=== PATIENT | female | born 1980 | race Caucasian/White ===

== ENCOUNTER 2016-07-02 22:48 | Emergency (ER) | payer OTHER ==
[~2016-07-02 22:48] MED LIST: AUGMENTIN TAB875 MG PO; FOLIC ACID 1 MG1 MG PO; GLUCOPHAGE 500500 MG PO; LISINOPRIL40 MG PO; LORTAB 7.5-3251 EACH PO; METFORMIN HCL500 MG PO; NEURONTIN 400400 MG PO; NORCO 7.5-3251 EACH PO; SEROQUEL100 MG PO
== END 2016-07-03 01:55 | disposition home or self-care (01) ==
LOC: ER1 22:48
DX: M54.5 Low back pain (principal); M79.604 Pain in right leg; G89.29 Other chronic pain; E11.9 Type 2 diabetes mellitus without complications; F17.200 Nicotine dependence, unspecified, uncomplicated; Z79.84 Long term (current) use of oral hypoglycemic drugs; Z79.899 Other long term (current) drug therapy
CPT/HCPCS: 96372; 99283; J1100

== ENCOUNTER 2021-09-07 23:57 | Emergency (ER) | payer OTHER ==
[~2021-09-07 23:57] MED LIST changes: +BROMFED DM COU473 ML PO; +PROAIR HFA8.5 GM INH
[2021-09-08 00:40] LABS: HEMOGLOBIN 11.4 gm/dl (12.3-15.3); WHITE BLOOD COUNT 5.2 K/UL (4.5-11.0)
[2021-09-08 01:01] LABS: BUN/CREATININE RATIO 14 (0-10)
== END 2021-09-08 00:01 | disposition home or self-care (01) ==
LOC: ER1 23:57
PROVIDERS: Emergency Medicine
DX: M54.2 Cervicalgia (principal); M25.512 Pain in left shoulder; I10 Essential (primary) hypertension; E11.9 Type 2 diabetes mellitus without complications; F17.210 Nicotine dependence, cigarettes, uncomplicated
CPT/HCPCS: 71045; 80053; 82550; 82553; 84484; 85025; 85379; 93005; 99284

== ENCOUNTER 2021-10-20 21:41 | Emergency (ER) | payer OTHER ==
[2021-10-20 23:48] LABS: HEMOGLOBIN 10.9 gm/dl (12.3-15.3); RED BLOOD COUNT 3.82 M/UL (4.00-5.10); WHITE BLOOD COUNT 5.3 K/UL (4.5-11.0)
[2021-10-21 00:29] LABS: BUN/CREATININE RATIO 19 (0-10)
== END 2021-10-21 02:19 | disposition left against medical advice (07) ==
LOC: ER1 21:41
PROVIDERS: Physician Assistant
DX: R60.0 Localized edema (principal); F17.200 Nicotine dependence, unspecified, uncomplicated; R40.2410 Glasgow coma scale score 13-15, unspecified time; E11.9 Type 2 diabetes mellitus without complications; I10 Essential (primary) hypertension; Z90.710 Acquired absence of both cervix and uterus; Z90.49 Acquired absence of other specified parts of digestive tract
CPT/HCPCS: 80053; 83880; 85025; 99283

== ENCOUNTER 2021-11-17 03:57 | Emergency (ER) | payer OTHER | END 2021-11-17 06:05 | disposition home or self-care (01) | LOC: ER1 03:57 | DX: J06.9 Acute upper respiratory infection, unspecified (principal); F17.210 Nicotine dependence, cigarettes, uncomplicated; E11.9 Type 2 diabetes mellitus without complications; I10 Essential (primary) hypertension; Z20.822 Contact with and (suspected) exposure to COVID-19 | CPT/HCPCS: 87081; 87880; 99283; U0002 ==